=== PATIENT | female | born 1980 | race Caucasian/White ===

== ENCOUNTER 2017-01-18 09:20 | Emergency (ER) | payer SELFPAY ==
[~2017-01-18] VITALS: Ht 162.6 cm; Wt 62.0 kg
[2017-01-18] MEDS ORDERED: SODIUM CHLORIDE 0.9% 1,000ML IVBOLUS ONE (09:30)
[2017-01-18] MEDS ORDERED: SODIUM CHLORIDE FLUSH 10ML SYR IVF ONE ×2 (09:30→13:30)
[2017-01-18] MEDS ORDERED: LORazepam 0.5MG TABLET ONE (09:37)
[2017-01-18 09:52] LABS: WHITE BLOOD COUNT 12.4 x10^3/uL (3.4-10)
[2017-01-18 09:59] LABS: ASPARTATE AMINO TRANSFERASE 15 U/L (15-37); BLOOD UREA NITROGEN 7 mg/dL (7-18)
[2017-01-18] MEDS ORDERED: LORazepam 0.5MG TABLET PO ONE (10:00)
[2017-01-18] MEDS ORDERED: PLEASE ENTER ALLERGIES MC SCH ×2 (10:00)
[2017-01-18 11:17] LABS: DAU SCREEN DISCLAIMER
[2017-01-18 12:49] VITALS: BP 159/114
[2017-01-18] MEDS ORDERED: METOCLOPRAMIDE 5 MG/ML, 2ML ONE (13:26)
[2017-01-18] MEDS ORDERED: DIPHENHYDRAMINE 50 MG CAPSULE ONE (13:26)
[2017-01-18] MEDS ORDERED: KETOROLAC 30 MG/1 ML ONE (13:26)
[2017-01-18] MEDS ORDERED: DIPHENHYDRAMINE 50 MG/ML, 1ML ONE (13:27)
[2017-01-18] MEDS ORDERED: KETOROLAC 30 MG/1 ML IVPush ONE (13:30)
[2017-01-18] MEDS ORDERED: DIPHENHYDRAMINE 50 MG/ML, 1ML IVPush ONE (13:30)
[2017-01-18] MEDS ORDERED: METOCLOPRAMIDE 5 MG/ML, 2ML IVPush ONE (13:30)
== END 2017-01-18 13:50 | disposition home or self-care (01) ==
LOC: ED 10:11
DX: R55 Syncope and collapse (principal); G43.109 Migraine with aura, not intractable, without status migrainosus
CPT/HCPCS: 36415; 70450; 71010; 80053; 80307; 81003; 84703; 85025; 85379; 93005; 96361; 96374; 96375; 99285; J1200; J1885; J2765; J7030; G0479

== ENCOUNTER 2017-02-07 10:52 | Emergency (ER) | payer MEDICAID, OTHER ==
[~2017-02-07] VITALS: Ht 160 cm; Wt 63.0 kg
[2017-02-07 10:53] VITALS: BP 160/110
[2017-02-07] MEDS ORDERED: FAMOTIDINE 20 MG TABLET ONE (11:29)
[2017-02-07] MEDS ORDERED: FAMOTIDINE 20 MG/2 ML IVPush ONE (11:30)
== END 2017-02-07 12:49 | disposition home or self-care (01) ==
LOC: ED 11:47
DX: L29.9 Pruritus, unspecified (principal); T78.40XA Allergy, unspecified, initial encounter; F17.200 Nicotine dependence, unspecified, uncomplicated; F12.10 Cannabis abuse, uncomplicated; X58.XXXA Exposure to other specified factors, initial encounter; Y93.89 Activity, other specified; Y99.8 Other external cause status; Y92.89 Other specified places as the place of occurrence of the external cause
CPT/HCPCS: 96374; 99284; J7512; Q0177; S0028